=== PATIENT | female | born 1945 | race Caucasian/White ===

== ENCOUNTER 2016-11-10 19:24 | Emergency (ER) | payer MEDICARE ==
[2016-11-10 23:47] LABS: HEMOGLOBIN 12.3 gm/dl (12.3-15.3); RED BLOOD COUNT 4.27 M/UL (4.00-5.10); WHITE BLOOD COUNT 6.7 K/UL (4.5-11.0)
[2016-11-11 00:08] LABS: BUN/CREATININE RATIO 34 (0-10)
== END 2016-11-11 01:05 | disposition home or self-care (01) ==
LOC: ER1 19:24
PROVIDERS: Family Medicine
DX: R20.0 Anesthesia of skin (principal); R20.2 Paresthesia of skin; R55 Syncope and collapse
CPT/HCPCS: 36415; 70450; 71010; 80053; 82550; 82553; 83874; 84484; 85025; 93005; 99285

== ENCOUNTER 2021-03-28 19:49 | Emergency (ER) | payer MEDICARE, OTHER ==
[2021-03-28 21:07] LABS: HEMOGLOBIN 13.4 gm/dl (12.3-15.3); RED BLOOD COUNT 4.46 M/UL (4.00-5.10); WHITE BLOOD COUNT 12.3 K/UL (4.5-11.0)
[2021-03-28 21:55] LABS: BUN/CREATININE RATIO 31 (0-10)
[2021-03-28] MEDS ORDERED: ZOFRAN ODT 4 MG4 MG SL (22:59)
[2021-03-28] MEDS ORDERED: BENTYL 10MG CAP10 MG PO (22:59)
[2021-03-29] MEDS ORDERED: XANAX0.5 MG PO (19:11)
[2021-03-29] MEDS ORDERED: LOPRESSOR 50 MG50 MG PO (19:12)
[2021-03-29] MEDS ORDERED: HYDROCODON-ACE1 EAC3 PO (19:12)
[2021-03-29] MEDS ORDERED: NORVASC2.5 MG PO (19:13)
[2021-03-29] MEDS ORDERED: LIPITOR TAB 1010 MG PO (19:13)
[2021-03-29] MEDS ORDERED: LEVOTHYROXINE75 MC1 PO (19:13)
[2021-03-29] MEDS ORDERED: PROTONIX40 MG PO (19:14)
[2021-03-29] MEDS ORDERED: SINGULAIR10 MG PO (19:14)
[2021-03-29] MEDS ORDERED: ANTIVERT 12.512.5 MG PO (19:14)
[2021-03-29] MEDS ORDERED: B-121000 MCG PO (19:15)
[2021-03-29] MEDS ORDERED: VITAMIN D21250 MCG PO (19:16)
[2021-03-29] MEDS ORDERED: ALBUTEROL2.5 MG/3 M INH (19:17)
[2021-03-29] MEDS ORDERED: MACROBID 100 M100 M1 PO (19:25)
== END 2021-03-28 23:08 | disposition home or self-care (01) ==
LOC: ER1 19:49
PROVIDERS: Student in an Organized Health Care Education/Training Program
DX: E86.0 Dehydration (principal); R11.2 Nausea with vomiting, unspecified; I10 Essential (primary) hypertension
CPT/HCPCS: 80053; 82550; 82553; 83690; 83874; 84484; 85025; 96374; 99284; J2405; J7030

== ENCOUNTER 2021-03-29 12:32 | Observation (INO) | payer MEDICARE ==
[~2021-03-29] VITALS: Ht 162.6 cm; Wt 77.1 kg
[~2021-03-29 12:32] MED LIST: BENTYL 10MG CAP10 MG PO; ZOFRAN ODT 4 MG4 MG SL
[2021-03-29 13:29] LABS: HEMOGLOBIN 14.3 gm/dl (12.3-15.3); RED BLOOD COUNT 4.75 M/UL (4.00-5.10)
[2021-03-29 13:55] LABS: BUN/CREATININE RATIO 27 (0-10)
[2021-03-29 13:57] LABS: WHITE BLOOD COUNT 18.9 K/UL (4.5-11.0)
[2021-03-29] MEDS ORDERED: XANAX0.5 MG PO (19:11)
[2021-03-29] MEDS ORDERED: HYDROCODON-ACE1 EAC3 PO (19:12)
[2021-03-29] MEDS ORDERED: LOPRESSOR 50 MG50 MG PO (19:12)
[2021-03-29] MEDS ORDERED: LEVOTHYROXINE75 MC1 PO (19:13)
[2021-03-29] MEDS ORDERED: LIPITOR TAB 1010 MG PO (19:13)
[2021-03-29] MEDS ORDERED: NORVASC2.5 MG PO (19:13)
[2021-03-29] MEDS ORDERED: SINGULAIR10 MG PO (19:14)
[2021-03-29] MEDS ORDERED: PROTONIX40 MG PO (19:14)
[2021-03-29] MEDS ORDERED: ANTIVERT 12.512.5 MG PO (19:14)
[2021-03-29] MEDS ORDERED: B-121000 MCG PO (19:15)
[2021-03-29] MEDS ORDERED: VITAMIN D21250 MCG PO (19:16)
[2021-03-29] MEDS ORDERED: ALBUTEROL2.5 MG/3 M INH (19:17)
[2021-03-29] MEDS ORDERED: MACROBID 100 M100 M1 PO (19:25)
[2021-03-30 07:14] LABS: BUN/CREATININE RATIO 20 (0-10)
[2021-03-30 08:11] LABS: HEMOGLOBIN 10.4 gm/dl (12.3-15.3); RED BLOOD COUNT 3.58 M/UL (4.00-5.10); WHITE BLOOD COUNT 10.2 K/UL (4.5-11.0)
[2021-03-30] MEDS ORDERED: FLAGYL500 MG PO (11:12)
[2021-03-30] MEDS ORDERED: LEVOFLOXACIN500 MG PO (11:12)
== END 2021-03-30 13:55 | disposition home or self-care (01) ==
LOC: ER1 12:32 → MED SURG 4 16:18 → CDU 16:18 → MED SURG 4 16:18
PROVIDERS: Emergency Medicine; Physician Assistant; ADMIT Internal Medicine
DX: K52.9 Noninfective gastroenteritis and colitis, unspecified (principal); Z20.822 Contact with and (suspected) exposure to COVID-19; I10 Essential (primary) hypertension; E78.5 Hyperlipidemia, unspecified; Z90.49 Acquired absence of other specified parts of digestive tract; Z88.2 Allergy status to sulfonamides; Z88.5 Allergy status to narcotic agent; E80.6 Other disorders of bilirubin metabolism; D72.829 Elevated white blood cell count, unspecified; E87.6 Hypokalemia; J98.11 Atelectasis
CPT/HCPCS: 80053; 81001; 83605; 83690; 85007; 85025; 85027; 87040; 96374; 96375; 96376; 99285; G0378; J1956; J2405; Q9967; U0002

== ENCOUNTER → 2021-06-10 | Outpatient (CLI) | payer MEDICARE ==
[~2021-06-10] MED LIST changes: +ALBUTEROL2.5 MG/3 M INH; +ANTIVERT 12.512.5 MG PO; +B-121000 MCG PO; +FLAGYL500 MG PO; +HYDROCODON-ACE1 EAC3 PO; +LEVOFLOXACIN500 MG PO; +LEVOTHYROXINE75 MC1 PO; +LIPITOR TAB 1010 MG PO; +LOPRESSOR 50 MG50 MG PO; +MACROBID 100 M100 M1 PO; +NORVASC2.5 MG PO; +PROTONIX40 MG PO; +SINGULAIR10 MG PO; +VITAMIN D21250 MCG PO; +XANAX0.5 MG PO
== END ==
LOC: MAMO 08:00
DX: Z12.31 Encounter for screening mammogram for malignant neoplasm of breast (principal)
CPT/HCPCS: 77063; 77067

== ENCOUNTER 2021-06-30 12:11 | Emergency (ER) | payer MEDICARE | END 2021-06-30 12:45 | disposition left against medical advice (07) | LOC: ER1 12:11 | DX: Z53.21 Procedure and treatment not carried out due to patient leaving prior to being seen by health care provider (principal) ==

== ENCOUNTER → 2022-01-17 | Outpatient (CLI) | payer MEDICARE | LOC: RT 11:07 | DX: I10 Essential (primary) hypertension (principal) | CPT/HCPCS: 93005 ==